=== PATIENT | male | born 1940 | race Caucasian/White ===

== ENCOUNTER 2017-01-02 16:24 | Inpatient (IN) ==
--- NOTE | 2017-01-02 16:52 | Emergency Department Report ---
Abdominal Pain HPI - General Chief Complaint: Abdominal Pain Stated Complaint: Abdominal pain Time Seen by Provider: 01/02/17 16:52 Source: patient Mode of arrival: ambulatory Limitations: no limitations - History of Present Illness HPI narrative: 76 YO M presents to ED with report of "not feeling well", feels tired and is having abdominal pain. Patient says that he woke up with abdominal pain that is medial from epigastric area to suprapubic area. Patient says it feels like an ache/cramp in his "belly". Ate breakfast today only. Took some Pepto-Bismol which he says he was unable to keep down. Has had a few small stools today that feels like he "cannot empty myself out". Patient reports forcing himself to to vomit to feel better "but nothing much came up". Patient denies fever, chills, cough, SOA, constipation, diarrhea or dysuria. No known sick contacts. MD complaint: abdominal pain Onset (ago): hour(s) Severity scale (1-10): 9 Quality: cramping, aching - Related Data Home Medications Medication Instructions Recorded Confirmed Amiodarone [Pacerone] 200 mg PO TID 01/02/17 01/02/17 Ascorbic Acid [Vitamin C] 1,000 mg PO WS 01/02/17 01/02/17 Cholecalciferol (Vitamin D3) 5,000 unit PO NOON 01/02/17 01/02/17 [Vitamin D3] Dabigatran [Pradaxa] 150 mg PO BID 01/02/17 01/02/17 Evolocumab [Repatha Sureclick] 140 mg SQ Q2WKS 01/02/17 01/02/17 Gemfibrozil [Lopid] 600 mg PO BIDBS 01/02/17 01/02/17 GlyBURIDE [Micronase] 2.5 mg PO HS 01/02/17 01/02/17 GlyBURIDE [Micronase] 5 mg PO QAM 01/02/17 01/02/17 Losartan [Cozaar] 50 mg PO DAILY 01/02/17 01/02/17 Metformin [Glucophage] 1,000 mg PO BID 01/02/17 01/02/17 Niacin 1,000 mg PO HS 01/02/17 01/02/17 Nitroglycerin [Nitrostat] 0.4 mg PO Q5MIN3 PRN 01/02/17 01/02/17 [place]-3/Dha/Epa/Fish Oil [Fish Oil 1 cap PO NOON 01/02/17 01/02/17 [place]-3 EC 1,200 mg] Phenytoin Cap [Dilantin] 100 mg PO WB 01/02/17 01/02/17 Phenytoin Cap [Dilantin] 200 mg PO HS 01/02/17 01/02/17 Terbinafine Tab [LamISIL] 250 mg PO DAILY 01/02/17 01/02/17 Allergies Allergy/AdvReac Type Severity Reaction Status Date / Time lisinopril Allergy Unknown Verified 01/02/17 17:03 Pvkkkmj-Ybp-Gfq Reductase Allergy Unknown Verified 01/02/17 17:03 Inhibitor Review of Systems All systems: reviewed and negative except as stated Gastrointestinal: Reports: as per HPI, abdominal pain, nausea, vomiting PFSH Diabetes Type II HTN CAD Atrial Fibrillation Hypercholesterolemia Surgical History: Hernia repair. Cardiac stents. Cardiac ablation Family History: Noncontributory - Social History Household members: spouse Current occupational status: retired Physical Exam - Limitations Limitations: no limitations - General General appearance: alert - Normal Exams: Head:: Normocephalic without trauma Eyes:: No scleral icterus, irritation ENMT:: No facial trauma, nasal exudates Neck:: Full range of motion, without adenopathy Chest/Respirations:: Clear all quach, with good airflow, and symmetry bilaterally Cardiovascular:: Regular rate and rhythm Musculoskeletal:: No tenderness, or deformity noted, all extremities Integumentary:: No rashes Neurological:: Patient is alert, and oriented Psychiatric:: Patient exhibits, appropriate attention, emotion and affect - Abdominal Exam Abdominal exam: Present: soft, distention, tenderness (diffuse mild TTP), diminished bowel sounds (x4). Absent: guarding, rebound - Skin Skin exam: Present: warm, dry Course - Consultations Consultation #1: I discussed patient's HPI, PMH, labs, abdomen/pelvis CT, exam findings and treatment in the ED with Dr. Goldman. Dr. Goldman will admit patient observation. Time: 19:52 Vital Signs Temperature 97.9 F 01/02/17 16:30 Pulse Rate 75 01/02/17 16:30 Respiratory Rate 20 01/02/17 16:30 Blood Pressure 170/80 H 01/02/17 16:30 Pulse Oximetry 93 01/02/17 16:30 Temperature 97.9 F 01/02/17 16:30 Pulse Rate 75 01/02/17 16:30 Respiratory Rate 20 01/02/17 16:30 Blood Pressure 170/80 H 01/02/17 16:30 Pulse Oximetry 93 01/02/17 16:30 Abdominal Pain - [facility] Narrative Medical decision making narrative: Patient has improvement of pain after Dilaudid with improvement of nausea with Zofran. WBC 8.6 with neut. 76.6 CMP indicates mild dehydration I discussed labs and CT results with patient and answered questions. Discussed with hospitalist patient will be admitted observation status. - Differential Diagnosis Differential diagnosis: Likely: abdominal pain, constipation, diverticulitis, small bowel obstruction - Lab Data Attestation: I reviewed the patient's lab results. Result diagrams: 01/02/17 17:31 01/02/17 17:31 - Radiology Data Attestation: I reviewed the patient's radiology results. CT abd/pelvis: Small bowel ileus Increased stool in the ascending colon Cholelithiasis Diffuse fatty liver infiltration Disposition Clinical Impression: Ileus Disposition: 02 To [place] [facility] [place] Condition: Improved - Seen By: midlevel
[2017-01-02] MEDS ORDERED: ONDANSETRON 4 MG/2 ML INJECTION IV ONE (17:07)
[2017-01-02] MEDS ORDERED: HYDROMORPHONE 2 MG/ML INJECTION IVP ONE (17:33)
[2017-01-02] MEDS ORDERED: NS 1,000 ML IV SCH (17:45)
[2017-01-02] MEDS ORDERED: SALINE FLUSH 10ml SYRINGE ONE (18:46)
[2017-01-02] MEDS ORDERED: NS 100 ML ONE (18:46)
[2017-01-02] MEDS ORDERED: IOHEXOL 300mg/ml 100ml INJECTION ONE (18:46)
[2017-01-02] MEDS ORDERED: ONDANSETRON 4 MG/2 ML INJECTION IVP PRN (20:53)
[2017-01-02] MEDS: NS 1,000 ML IV SCH (21:07)
[2017-01-02 21:08] VITALS: BMI 32.3
[2017-01-02] MEDS: HYDROMORPHONE 2 MG/ML INJECTION IVP PRN ×2 (21:42→23:42)
--- NOTE | 2017-01-02 21:51 | History & Physical Report ---
<Giulia Lua Laura - Last Filed: 01/02/17 22:09> History of Present Illness Date: 01/02/17 Chief complaint: abdominal pain HPI: 76 YO M with PMH of CAD, DM2, pacemaker and seizure disorder presented to ED with report of "not feeling well", feels tired and is having abdominal pain. Patient says that he woke up with abdominal pain that is medial from epigastric area to suprapubic area. Patient says it feels like an ache/cramp in his "belly ". Ate breakfast today only. Took some Pepto-Bismol which he says he was unable to keep down. Has had a few small stools today that feels like he "cannot empty myself out". Patient reports forcing himself to to vomit to feel better "but nothing much came up". Patient denies fever, chills, cough, SOA, constipation, diarrhea or dysuria. No known sick contacts. Patient denies previous abdominal surgeries or bowel blockages in the past. He reports after getting dilaudid in the ED his pain became a 6-7/10 constant pressure in his lower right abdomen. CT scan in the ED showed a ileus and constipation. Patient admitted for further supportive care and pain control. Review of Systems Comprehensive ROS: completed and no additional positive findings except those as stated PFSH Patient Stated Medical History Cataracts Yes Angina Yes Cardiac Arrhythmia Yes Hypertension Yes Myocardial Infarction Yes: 1991 Diabetes Mellitus Type 2 Yes Obstructive Bowel Yes Other GI Yes: Hernia Hx Kidney Stones Yes Hx Urinary Tract Infection Yes Other Yes: Swollen Prostate Osteoarthritis Yes Surgical History: Hernia repair. Cardiac stents. Cardiac ablation - Social History Smoking status: Former smoker Medications Home Medications Medication Instructions Recorded Confirmed Type Amiodarone [Pacerone] 200 mg PO TID 01/02/17 01/02/17 History Ascorbic Acid [Vitamin C] 1,000 mg PO WS 01/02/17 01/02/17 History Cholecalciferol (Vitamin D3) 5,000 unit PO NOON 01/02/17 01/02/17 History [Vitamin D3] Dabigatran [Pradaxa] 150 mg PO BID 01/02/17 01/02/17 History Evolocumab [Repatha Sureclick] 140 mg SQ Q2WKS 01/02/17 01/02/17 History Gemfibrozil [Lopid] 600 mg PO BIDBS 01/02/17 01/02/17 History GlyBURIDE [Micronase] 2.5 mg PO HS 01/02/17 01/02/17 History GlyBURIDE [Micronase] 5 mg PO QAM 01/02/17 01/02/17 History Losartan [Cozaar] 50 mg PO DAILY 01/02/17 01/02/17 History Metformin [Glucophage] 1,000 mg PO BID 01/02/17 01/02/17 History Niacin 1,000 mg PO HS 01/02/17 01/02/17 History Nitroglycerin [Nitrostat] 0.4 mg PO Q5MIN3 PRN 01/02/17 01/02/17 History [place]-3/Dha/Epa/Fish Oil [Fish Oil 1 cap PO NOON 01/02/17 01/02/17 History [place]-3 EC 1,200 mg] Phenytoin Cap [Dilantin] 100 mg PO WB 01/02/17 01/02/17 History Phenytoin Cap [Dilantin] 200 mg PO HS 01/02/17 01/02/17 History Terbinafine Tab [LamISIL] 250 mg PO DAILY 01/02/17 01/02/17 History Allergies Allergy/AdvReac Type Severity Reaction Status Date / Time lisinopril Allergy Unknown Verified 01/02/17 17:03 [id number]-Yci-Rts Reductase Allergy Unknown Verified 01/02/17 17:03 Inhibitor Exam Vital Signs: Temperature 97.6 F 01/02/17 20:52 Pulse Rate 75 01/02/17 20:52 Respiratory Rate 20 01/02/17 20:52 Blood Pressure 161/89 H 01/02/17 20:52 Pulse Oximetry 95 01/02/17 20:52 Oxygen Delivery Method Room Air Height/Weight/BMI: Height 1.7 m Weight 93.5 kg Body Mass Index 32.3 Results - Labs CBC & Chem 7: 01/02/17 17:31 01/02/17 17:31 Assessment and Plan (1) Ileus Current visit: Yes Status: Acute 01/02/17 21:57 likely cause of patients abdominal pain. Patient responding well to Dilaudid PRN. Make patient NPO give IVF with 1/2NS at 100cchr. Will continue phenytoin, but hold all other medications until patient is able to tolerate PO. Repeat labs and KUB in AM. Do not think patient needs NGT to decompression at this time. Monitor for changes. Consider Gen Surg consult in AM if patient's condition worsens. (2) Constipation Current visit: Yes Status: Acute DVT Prophylaxis: SCD's GI Prophylaxis: Protonix Resuscitation Status: Full Code Hospital Course Summary Disclaimer: The visit summary below is not to be considered part of the above Progress Note. <Sandhya Fry - Last Filed: 01/03/17 17:16> History of Present Illness Date: 01/03/17 Exam Vital Signs: Temperature 96.8 F 01/03/17 00:00 Pulse Rate 81 01/03/17 11:39 Respiratory Rate 22 01/03/17 11:39 Blood Pressure 128/69 01/03/17 11:39 Pulse Oximetry 90 01/03/17 11:39 Results - Labs CBC & Chem 7: 01/03/17 02:13 01/03/17 02:13 Assessment and Plan (1) Ileus Current visit: Yes Status: Acute (2) Constipation Current visit: Yes Status: Acute Assessment and Plan: Please see note 01/03/17 for my additional comments. Hospital Course Summary Disclaimer: The visit summary below is not to be considered part of the above Progress Note.
--- NOTE | 2017-01-02 22:05 | CT Scan Report ---
Indication: diffuse abdominal pain PROCEDURE: CT abdomen pelvis w con: Encounter: Initial Comparison: None Technique: Axial CT images were performed through the abdomen and pelvis after the administration of intravenous contrast. Coronal and sagittal two-dimensional reformats. Automated Exposure Control and Iterative Reconstruction dose reducing techniques were utilized. Contrast: Omnipaque 300 100 mL Findings: The lung bases are clear. The liver is unremarkable apart from fatty infiltration. Gallbladder is distended with multiple gallstones in the gallbladder neck. The spleen, pancreas and adrenal glands are normal. Kidneys show no acute findings. No abdominal or pelvic adenopathy. Scattered arterial vascular calcifications. Prostate is enlarged. No free fluid. Sigmoid and descending colonic diverticulosis without evidence of diverticulitis. There are some mildly dilated small bowel loops seen in the anterior abdomen measuring up to 3.7 cm in diameter with gradual transition to more normal caliber bowel. There is some wall thickening seen within the terminal ileum. Impression: Findings of a mild focal ileus or partial small bowel obstruction. There is a preliminary report by [facility]. .
[2017-01-02] MEDS: PANTOPRAZOLE 40 MG INJECTION IVP SCH (23:05)
[2017-01-02] MEDS: PHENYTOIN 100 MG CAPSULE PO SCH (23:05)
[2017-01-02] MEDS: 1/2 NS 1,000 ML IV SCH (23:08)
[2017-01-03] MEDS: HYDROMORPHONE 2 MG/ML INJECTION IVP PRN ×9 (01:45→20:16)
[2017-01-03] MEDS: PHENYTOIN 100 MG CAPSULE PO SCH ×2 (09:06→22:20)
[2017-01-03] MEDS: PANTOPRAZOLE 40 MG INJECTION IVP SCH (09:06)
--- NOTE | 2017-01-03 10:02 | XRay Report ---
EXAM: XR KUB w upright HISTORY: ileus COMPARISON: CT scan of the abdomen and pelvis performed 01/02/2017 FINDINGS: There is been interval worsening of the gaseous dilatation of the loop of small bowel seen in the upper abdomen now demonstrating maximum caliber of 5.6 cm (previously demonstrated a maximum caliber of 3.7 cm). This may represent a closed loop obstruction as there is otherwise relative paucity of gas within the remaining small bowel loops. There is also gas gaseous distention of the adjacent james ascending colon demonstrating a maximum caliber of 9.4. There is a moderate amount of gas and fecal material visualized in the james ascending colon. Multiple faceted calculi projected over the right upper quadrant which were found to be gallbladder in location on the 01/02/2017 CT scan of the abdomen and pelvis. There is no free air or free fluid. There are air-fluid levels on the upright view. There is no evidence of organomegaly. The psoas muscle margins are well visualized. The osseous structures are stable showing moderately advanced degenerative/senescent changes in the lumbar spine and bony pelvis. Limited imaging through the base of the lungs show cardiac There is contrast seen in the urinary bladder secondary to contrast recently administered intravenously for the CT scan of the abdomen and pelvis 01/02/2017. IMPRESSION: 1. Interval worsening of the ileus pattern is concerning for progression of the changes of small bowel obstruction which may be a closed loop obstruction. 2. No free air or free fluid. 3. Cholelithiasis. A preliminary report was called to the hospitalist regarding the above findings 01/03/2017 at 9:54 AM. .
[2017-01-03] MEDS: NS 1,000 ML IV SCH ×2 (11:13→22:19)
[2017-01-03] MEDS: 1/2 NS 1,000 ML IV SCH (11:14)
[2017-01-03] MEDS: SALINE FLUSH 10ml SYRINGE IVF PRN ×3 (11:18→16:28)
[2017-01-03] MEDS ORDERED: NITROGLYCERIN 0.4 MG SUBLINGUAL TABLET SL PRN (11:38)
--- NOTE | 2017-01-03 13:23 | General Surgery Consult Note ---
Consult date: 01/03/17 Attending Physician: Sandhya Fry MD Reason for consult: abdominal pain PFS Patient Stated Medical History Cataracts Angina Atrial fibrillation Hypertension Myocardial Infarction 1991 Diabetes Mellitus Type 2 Obstructive Bowel Hx Kidney Stones Hx Urinary Tract Infection BPH Osteoarthritis Surgical History: Inguinal Hernia repair. Pacemaker. Cardiac stents x 6 at different times since 1999. Cardiac ablation. Cardioversion x3. Colonoscopy x3, last one about 5-[address] Family History: brother - colon cancer dx in his late 40's, age 52 - Social History Smoking status: Former smoker Alcohol intake frequency: does not drink Household members: spouse ( 57 years) Current occupational status: retired Medications Home Medications Medication Instructions Recorded Confirmed Type Amiodarone [Pacerone] 200 mg PO TID 01/02/17 01/02/17 History Ascorbic Acid [Vitamin C] 1,000 mg PO WS 01/02/17 01/02/17 History Cholecalciferol (Vitamin D3) 5,000 unit PO NOON 01/02/17 01/02/17 History [Vitamin D3] Dabigatran [Pradaxa] 150 mg PO BID 01/02/17 01/02/17 History Evolocumab [Repatha Sureclick] 140 mg SQ Q2WKS 01/02/17 01/02/17 History Gemfibrozil [Lopid] 600 mg PO BIDBS 01/02/17 01/02/17 History GlyBURIDE [Micronase] 2.5 mg PO HS 01/02/17 01/02/17 History GlyBURIDE [Micronase] 5 mg PO QAM 01/02/17 01/02/17 History Losartan [Cozaar] 50 mg PO DAILY 01/02/17 01/02/17 History Metformin [Glucophage] 1,000 mg PO BID 01/02/17 01/02/17 History Niacin 1,000 mg PO HS 01/02/17 01/02/17 History Nitroglycerin [Nitrostat] 0.4 mg PO Q5MIN3 PRN 01/02/17 01/02/17 History [place]-3/Dha/Epa/Fish Oil [Fish Oil 1 cap PO NOON 01/02/17 01/02/17 History [place]-3 EC 1,200 mg] Phenytoin Cap [Dilantin] 100 mg PO WB 01/02/17 01/02/17 History Phenytoin Cap [Dilantin] 200 mg PO HS 01/02/17 01/02/17 History Terbinafine Tab [LamISIL] 250 mg PO DAILY 01/02/17 01/02/17 History Allergies Allergy/AdvReac Type Severity Reaction Status Date / Time lisinopril Allergy Unknown Verified 01/02/17 17:03 Ukabbgn-Rvg-Ctk Reductase Allergy Unknown Verified 01/02/17 17:03 Inhibitor Review of Systems 10-point ROS: negative except for HPI and the following: - Cardiovascular Cardiovascular: Present: chest pain (angina), other (history of Mi and cardiac stents) - Gastrointestinal Gastrointestinal: Present: other (see HPI) - Musculoskeletal Musculoskeletal: Present: joint pain (occasional) - Neurological Neurological: Present: seizures - Endocrine Endocrine: Present: diabetes - Hematologic/Lymphatic Hematologic/Lymphatic: Present: easy bruising, use of blood thinners - Vital Signs Last Vital Signs Temp 96.8 F 01/03/17 00:00 Pulse 81 01/03/17 11:39 Resp 22 01/03/17 11:39 BP 128/69 01/03/17 11:39 Pulse Ox 90 01/03/17 11:39 - Laboratory Result Diagrams: 01/03/17 02:13 01/03/17 02:13 General Surgery Results - Results Labs: 01/03/17 02:13 01/03/17 02:13 Hospital Course Summary Disclaimer: The visit summary below is not to be considered part of the above Progress Note. Sepsis Assessment - Evaluation Sepsis screening result: No Definite Risk
[2017-01-03] MEDS ORDERED: DIATRIZOATE MEGLUMINE/SOD. (66%/10%) 120ml SOLN ONE (15:00)
--- NOTE | 2017-01-03 15:36 | Ultrasound Report ---
EXAM: US gall bladder HISTORY: ruq abdominal pain COMPARISON: No prior studies available for comparison. FINDINGS: The liver is borderline enlarged showing diffuse increased echogenicity consistent with fatty infiltration. The gallbladder is mildly dilated consistent with gallbladder hydrops. There are stones in the gallbladder neck. The wall of the gallbladder is upper limits of normal thickness. The patient did not express tenderness while scanning over the gallbladder. There is no intra or extra hepatic biliary dilatation, the common bile duct measured 6 mm. The pancreas was not well seen and therefore could not be assess. The right kidney measured 10.6 cm, demonstrating no evidence of mass effect, hydronephrosis or perinephric fluid collection. Ascites is not seen. IMPRESSION: 1. Gallbladder hydrops with calculi seen in the gallbladder neck. The wall of the gallbladder is upper limits of normal. Early cholecystitis is not excluded. 2. Borderline enlarged fatty liver. 3. Pancreas was not well seen and therefore cannot be assessed. 4. There is no intra or extra hepatic biliary dilatation. .
[2017-01-03] MEDS: ERTAPENEM 1 G in NS 100 ML IV SCH (16:27)
--- NOTE | 2017-01-03 17:21 | History & Physical Report ---
History of Present Illness Date: 01/03/17 Chief complaint: abdominal pain HPI: 76 YO M with PMH of CAD, DM2, pacemaker and seizure disorder presented to ED early evening with report of "not feeling well" on awakening in the morning. He describes fatigue for 2 days and generalized having abdominal pain 1 day. Patient says that he woke up with abdominal pain that is medial from epigastric area to suprapubic area. Patient says it feels like an ache/cramp in his "belly ". Ate breakfast yesterday without nausea but was unable to eat later in the day due to increasing nausea through the day. Tried cold packs on his abdomen without relief; tried prune juice without relief. Took some Pepto-Bismol which he says he was unable to keep down. Has had a 2 small stools early yesterday but feels like he "cannot empty myself out". Since that time he's had no further stools or flatus. Patient tried forcing himself to to vomit to feel better "but nothing much came up". Patient denies fever, chills, cough, SOA, constipation, diarrhea or dysuria. Patient denies previous abdominal surgeries except remote right inguinal hernia repair; no past bowel blockages. Pain control required dilaudid in the ED his pain became a 6-7/10 constant pressure in his lower right abdomen. He has superimposed spasms of pain. CT scan in the ED showed a ileus and constipation. Patient admitted for further supportive care and pain control. 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 Pacemaker. Cardiac stents x 6 at different times since 1999. Cardiac ablation. Cardioversion x3. Colonoscopy x3, last one about 5-6 years ago at [facility] Family History: Mother- of blood clots to her heart Father- of coronary artery disease Brother-had coronary artery disease but of colon cancer One sister of complications of diabetes mellitus and a second sister has diabetes mellitus - Social History Smoking status: Former smoker Substance use type: does not use Alcohol intake frequency: does not drink Social history: PCP-[facility] [employer]-Dr. Peters Full code Medications Home Medications Medication Instructions Recorded Confirmed Type Amiodarone [Pacerone] 200 mg PO TID 01/02/17 01/02/17 History Ascorbic Acid [Vitamin C] 1,000 mg PO WS 01/02/17 01/02/17 History Cholecalciferol (Vitamin D3) 5,000 unit PO NOON 01/02/17 01/02/17 History [Vitamin D3] Dabigatran [Pradaxa] 150 mg PO BID 01/02/17 01/02/17 History Evolocumab [Repatha Sureclick] 140 mg SQ Q2WKS 01/02/17 01/02/17 History Gemfibrozil [Lopid] 600 mg PO BIDBS 01/02/17 01/02/17 History GlyBURIDE [Micronase] 2.5 mg PO HS 01/02/17 01/02/17 History GlyBURIDE [Micronase] 5 mg PO QAM 01/02/17 01/02/17 History Losartan [Cozaar] 50 mg PO DAILY 01/02/17 01/02/17 History Metformin [Glucophage] 1,000 mg PO BID 01/02/17 01/02/17 History Niacin 1,000 mg PO HS 01/02/17 01/02/17 History Nitroglycerin [Nitrostat] 0.4 mg PO Q5MIN3 PRN 01/02/17 01/02/17 History Vinton-3/Dha/Epa/Fish Oil [Fish Oil 1 cap PO NOON 01/02/17 01/02/17 History Vinton-3 EC 1,200 mg] Phenytoin Cap [Dilantin] 100 mg PO WB 01/02/17 01/02/17 History Phenytoin Cap [Dilantin] 200 mg PO HS 01/02/17 01/02/17 History Terbinafine Tab [LamISIL] 250 mg PO DAILY 01/02/17 01/02/17 History Allergies Allergy/AdvReac Type Severity Reaction Status Date / Time lisinopril Allergy Unknown Verified 01/02/17 17:03 Jvzaaop-Shw-Ycj Reductase Allergy Unknown Verified 01/02/17 17:03 Inhibitor Exam Vital Signs: Temperature 96.8 F 01/03/17 00:00 Pulse Rate 81 01/03/17 11:39 Respiratory Rate 22 01/03/17 11:39 Blood Pressure 128/69 01/03/17 11:39 Pulse Oximetry 90 01/03/17 11:39 EXAM: General-NAD, alert, cooperative HEENT-PERRL, EOMI without nystagmus, conjugate gaze, conjunctiva clear, sclera anicteric facial structures symmetric, oropharynx clear, neck supple and without adenopathy Lungs-respirations nonlabored, good airflow, rest sounds diminished at the bases Cardiac-regular rhythm, S1-S2 Abd-distended, soft, tender to palpation in the RUQ> RLQ, some guarding RUQ but no peritoneal signs, minimal bowel sounds Ext-without edema Skin-without rash or wounds Neuro-cranial nerves 3-12 intact, motor tone normal, sensation intact to light touch 4 extremities, proximal/distal power grossly normal Psych-calm, euthymic Results - Labs CBC & Chem 7: 01/03/17 02:13 01/03/17 02:13 Labs: Segs 86, bands 3, lymphocytes 7, monocytes 4 Liver enzymes unremarkable Lactic acid 1.7-1.6 Urinalysis unremarkable - Imaging and Cardiology CT scan - abdomen Status: image reviewed by me (gallbladder is enlarged but without gallbladder wall thickening, all stones are present at the neck of the gallbladder; third dilated loops of small bowel and increased stool content.) Abdominal x-ray Status: image reviewed by me (KUB this morning demonstrated increasing dilation of the loop of small bowel in the right upper quadrant and increasing gaseous distention in the ascending colon. Radiology notified me of worsening ileus or progression to small bowel obstruction.) Assessment and Plan (1) Ileus Current visit: Yes Status: Acute (2) Constipation Current visit: Yes Status: Acute DVT Prophylaxis: SCD's GI Prophylaxis: Protonix Resuscitation Status: Full Code Assessment and Plan: Assessment: Abdominal pain Ileus/early SBO Constipation Cholelithiasis Coronary artery disease Paroxysmal atrial fibrillation Diabetes mellitus, no known complications, oral medications-A1c 6.48/ Hypertension DJD with sciatica Plan: Continue IV fluids. Presentation/symptoms reviewed with Dr. Allred in conjunction with worsening radiographic findings. Dr. Allred seen the patient in consultation and additional imaging of gallbladder and Gastrografin upper GI planned. Supportive care with IV fluids, antiemetics, and pain medications. At present I don't believe an NG tube is needed. Monitor Accu-Cheks, corrective scale insulin is available if needed. Pradaxa on hold. Oral diabetes agents on hold. Continue amiodarone and phenytoin with sips of water. Sepsis Assessment - Evaluation Sepsis screening result: No Definite Risk Hospital Course Summary Disclaimer: The visit summary below is not to be considered part of the above Progress Note. Hospital Course: 01/03/17 17:37 Admitted overnight with abdominal pain and CT findings suggestive of ileus versus partial small bowel obstruction. Worsening radiographic findings this morning. Continue IV fluids. Presentation/symptoms reviewed with Dr. Allred in conjunction with worsening radiographic findings. Dr. Allred seen the patient in consultation and additional imaging of gallbladder and Gastrografin upper GI planned. Supportive care with IV fluids, antiemetics, and pain medications. At present I don't believe an NG tube is needed. Monitor Accu-Cheks, corrective scale insulin is available if needed. Pradaxa on hold. Oral diabetes agents on hold. Continue amiodarone and phenytoin with sips of water.
[2017-01-03] MEDS: AMIODARONE 200 MG TABLET PO SCH (22:23)
--- NOTE | 2017-01-04 08:01 | General Surgery Progress Note ---
Subjective Patient reports: feels better (abd pain is much improved, and states "my muscles are just sore now." ), pain is less (minimal tenderness RUQ, and nontender in the rest of the abd (although he is sitting, not supine).), bowel movement (several large liquid stools since the SBFT with gastrografin.), afebrile Narrative: Martini's negative during GB sono - Vital Signs Last Vital Signs Temp 96.6 F L 01/04/17 07:00 Pulse 80 01/04/17 07:00 Resp 16 01/04/17 07:00 BP 139/71 01/04/17 07:00 Pulse Ox 92 01/04/17 07:00 - Laboratory Result Diagrams: 01/04/17 04:24 01/04/17 04:24 Laboratory Tests 01/02/17 01/04/17 17:31 04:24 Total Bilirubin 0.60 0.60 AST 22 21 ALT 35 32 Alkaline Phosphatase 117 81 D Lipase 153 - Radiology 01/03 KUB IMPRESSION: 1. Interval worsening of the ileus pattern is concerning for progression of the changes of small bowel obstruction which may be a closed loop obstruction. 2. No free air or free fluid. 3. Cholelithiasis. 01/03 GB sono IMPRESSION: 1. Gallbladder hydrops with calculi seen in the gallbladder neck. The wall of the gallbladder is upper limits of normal. Early cholecystitis is not excluded. 2. Borderline enlarged fatty liver. 3. Pancreas was not well seen and therefore cannot be assessed. 4. There is no intra or extra hepatic biliary dilatation. 01/03 SBFT - Abnormal Exam Abdominal: tender (mildly tender RUQ) - Normal Exam General: no acute distress Cardiovascular: regular rhythm, regular rate Respiratory: clear bilaterally, no labored breathing Abdominal: BS normo active x4 (several liquid stools since gastrografin), soft Neurological: CN 2-12 grossly intact Assessment and Plan (1) Cholelithiasis without obstruction Current Visit: Yes Status: Acute Qualifiers: Cholelithiasis location: gallbladder Cholecystitis presence: without cholecystitis Qualified Code(s): K80.20 - Calculus of gallbladder without cholecystitis without obstruction (2) Ileus Current Visit: Yes Status: Resolved Plan: Multiple stools after gastrografin, ruling out SBO RUQ pain essentially gone this morning and Martini neg during GB sono will advance diet as tolerated. Hospital Course Summary Disclaimer: The visit summary below is not to be considered part of the above Progress Note. Hospital Course: 01/03/17 17:37 Admitted overnight with abdominal pain and CT findings suggestive of ileus versus partial small bowel obstruction. Worsening radiographic findings this morning. Continue IV fluids. Presentation/symptoms reviewed with Dr. Allred in conjunction with worsening radiographic findings. Dr. Allred seen the patient in consultation and additional imaging of gallbladder and Gastrografin upper GI planned. Supportive care with IV fluids, antiemetics, and pain medications. At present I don't believe an NG tube is needed. Monitor Accu-Cheks, corrective scale insulin is available if needed. Pradaxa on hold. Oral diabetes agents on hold. Continue amiodarone and phenytoin with sips of water. Sepsis Assessment - Evaluation Sepsis screening result: No Definite Risk
[2017-01-04] MEDS: ERTAPENEM 1 G in NS 100 ML IV SCH (08:14)
[2017-01-04] MEDS: PANTOPRAZOLE 40 MG INJECTION IVP SCH (08:14)
[2017-01-04] MEDS: AMIODARONE 200 MG TABLET PO SCH ×3 (08:15→20:26)
[2017-01-04] MEDS: PHENYTOIN 100 MG CAPSULE PO SCH ×2 (08:15→20:26)
[2017-01-04] MEDS: SALINE FLUSH 10ml SYRINGE IVF PRN (08:15)
[2017-01-04] MEDS: NS 1,000 ML IV SCH ×3 (08:17→23:48)
--- NOTE | 2017-01-04 08:34 | XRay Report ---
Indication: ileus vs small bowel obstruction PROCEDURE: XR small bowel follow through: Encounter: Initial Comparison: CT abdomen/pelvis dated January 02, 2017 Findings: Water-soluble contrast was administered orally followed by serial abdominal radiographs. Contrast traverses the small bowel slowly show mildly dilated small bowel loops. Contrast reaches the cecum and right colon by 2 h and 45 minutes after administration. Impression: Normal intestinal transit time less than three hours. Mild small bowel dilatation could represent a mild partial obstruction or ileus. .
--- NOTE | 2017-01-04 08:36 | Consultation ---
DATE OF CONSULTATION 01/03/2017 FINDINGS Mr. Mendiola is a 76-year-old gentleman I was asked to see today as a result of his history for history and physical findings of abdominal pain in conjunction with radiographic evidence suggestive of possible bowel obstruction. Upon questioning Mr. Mendiola, he states that he has been "A-Fib" over the last several months. He states that he has been feeling "more tired than usual." The patient states that on Tuesday he had awakened and was going to go to [employer] School, but did not feel well. The patient states that he then "lay on the couch." The patient states that by lunch he "felt miserable." He states that he was nauseated and had abdominal pain throughout his abdomen. The patient states, "I tried to make myself throw up," thinking that that this may make him feel better. He states he did take some prune juice and Pepto-Bismol prior to "making myself throw up." The patient states that he has had a few small bowel movement since Tuesday. He states, however, he feels as if he is not "emptying out." The patient denies a prior history for this type of abdominal pain in the past. The patient states that he has had "kidney stones in the past and that was significantly worse." Upon my entering the room he was requesting intravenous narcotics as a result of his abdominal pain. When questioned where his pain is located, he pointed mostly to his right midabdominal region. The patient has not had any further vomiting since admission. PAST MEDICAL HISTORY Performed by my nurse practitioner, Jimbo Castillo. PAST SURGICAL HISTORY Performed by my nurse practitioner, Jimbo Castillo. MEDICATIONS Performed by my nurse practitionerJimbo. ALLERGIES Performed by my nurse practitionerJimbo. SOCIAL HISTORY Performed by my nurse practitionerJimbo. FAMILY HISTORY Performed by my nurse practitionerJimbo. REVIEW OF SYSTEMS Performed by my nurse practitionerJimbo. PHYSICAL EXAMINATION Mr. Mendiola is a 76-year-old gentleman who did not appear to be in acute distress. VITALS: Temperature 96.8, pulse 81, respirations 22, blood pressure 128/69, SaO2 90% on room air. HEENT: Normocephalic. Pupils are equal, round and reactive to light and accommodation. NECK: Supple without lymphadenopathy. CHEST: Clear to auscultation bilaterally. HEART: Regular rate and rhythm. Normal S1 and S2 without gallops, murmurs or clicks. ABDOMEN: Palpation of the abdomen actually revealed localized tenderness to his right upper quadrant. The patient did have a positive Martini sign, i.e. the pain was made worse with inspiration in conjunction with palpation within the right upper quadrant. The patient did have some minimal tenderness within the right lower quadrant and right midabdomen, but again, the point tenderness appeared to be within the right upper quadrant in a subcostal location. Left side of the abdomen was soft and completely nontender. The patient did have a slight component of some voluntary guarding but was without evidence for involuntary guarding or rebound tenderness. I did not appreciate any evidence for hepatomegaly or other abnormal masses. EXTREMITIES: Without clubbing, cyanosis, or edema. NEURO: Cranial nerves II-XII grossly intact. Patient is without focal motor or sensory deficits. LABORATORY/RADIOGRAPH EVALUATION The patient had a CBC yesterday upon admission and his white count was 8.6. Today his white count is slightly more elevated at 13.5. He does have a slight left shift with 86% neutrophils. CMP was obtained yesterday upon admission and his AST, ALT, alk phos, total bilirubin were all within normal limits. Calcium was minimally elevated at 10.3. Calcium has now returned to normal at 9.4 today. Radiographically he has had a CT scan of his abdomen and pelvis as well as plain films. On CT scan one can see a considerable amount of stool located within the cecal region. It does appear that the terminal ileum is somewhat dilated as well. One can see air within the rectum as well as the colon beyond this large cecal fecalization region. CT scan report was that of findings of a "mild focal ileus" or "partial small bowel obstruction." One could also see several stones within the neck of the gallbladder region upon CT scan. Upon plain films one can also see several stones within the anatomic location of the gallbladder. KUB and upright was obtained today. The patient does have a fair amount of distention of the cecal region in conjunction with a considerable amount of stool within the right lower quadrant which was seen previously upon CT scan. One can see some air within the transverse colon as well. It does appear that he has some dilated loops of small bowel within the pelvic region. I do not see any air-fluid levels. ASSESSMENT A 76-year-old gentleman with localized severe right upper quadrant abdominal pain, finding of cholelithiasis upon CT scan, finding of possible ileus versus partial small bowel obstruction upon radiograph evaluation. Patient without acute surgical abdomen. PLAN From a physical examination standpoint, he is exquisitely tender within his right upper quadrant which is concerning for a gallbladder etiology. We will go ahead and obtain a gallbladder sonogram to see if there is any evidence for gallbladder wall thickening or pericholecystic fluid. CT scan did reveal the gallbladder to be somewhat distended, but I did not see any evidence for pericholecystic stranding or edema to suggest acute cholecystitis. We will await his gallbladder ultrasound results and proceed accordingly. Additionally , given the question of a small bowel obstruction in conjunction with the considerable amount of stool noted within the cecal region, we will also go ahead obtain a Gastrografin small bowel follow-through this evening. Again, we will await these results and proceed accordingly. [facility]
[2017-01-04] MEDS: INSULIN ASPART 100unit/ml INJECTION SQ PRN (12:29)
--- NOTE | 2017-01-04 13:48 | Progress Note ---
DATE 01/04/2017 FINDINGS Mr. Mendiola states that this morning he is feeling significantly better. He states he did have several bowel movements throughout the evening. He states that his pain this morning is essentially "gone." He states that his "muscles are a little sore from straining." VITALS: Afebrile. Normotensive. Current vitals include temperature 96.6, pulse 80, respirations 16, blood pressure 139/71, SaO2 92% on room air. HEENT: Normocephalic. Pupils are equal, round and reactive to light and accommodation. CHEST: Clear to auscultation bilaterally. HEART: Regular rate and rhythm. Normal S1 and S2 without gallops, murmurs or clicks. ABDOMEN: Palpation of the abdomen this morning reveals it to be soft and essentially nontender. He did not have any element of guarding or rebound. No evidence of hepatomegaly or other abnormal masses. LABORATORY/RADIOGRAPH EVALUATION The patient had a CBC today and his white count is down at 12.6. Hemoglobin stable at 13.1. BMP obtained and overall is within normal limits with the exception that his sodium is minimally elevated at 145. Glucose is slightly elevated at 161. I did review the gallbladder ultrasound yesterday that revealed gallstones seen within the neck of his gallbladder. The wall of the gallbladder was within the upper limits. "Early cholecystitis could not be excluded." His liver function test remained within normal limits. Small bowel follow-through results are still pending. I did review the films. One can see contrast within his right colon at 2 hours and 45 minutes. ASSESSMENT 76-year-old gentleman with a presentation of abdominal pain, abnormal CT scan, right upper quadrant abdominal pain. Pain at this time has seemed to resolve. PLAN At this time the patient seems to be doing quite well from a clinical standpoint. His abdominal pain has completely resolved. Will advance his diet as tolerated. Will continue to follow with serial abdominal examinations. I question whether or not he perhaps did have a "gallbladder attack" resulting in a component of ileus. For now we will follow from a clinical standpoint and if the patient would have evidence for recurrence of symptomatic cholelithiasis, then at that point time would proceed with surgical intervention. Will be conservative at this point in time and, again, follow the patient from a clinical standpoint. [facility]
--- NOTE | 2017-01-04 14:30 | Progress Note ---
Subjective: Mr. Mendiola reports he feels significantly improved today. He has minor discomfort in the right upper quadrant but nothing like the discomfort he experienced yesterday and the prior day. He denies nausea or vomiting and tolerated liquids for breakfast. He had multiple stools after Gastrografin upper GI yesterday. He denied dyspnea or chest pain has had no lightheadedness. Objective Vital signs: Temperature 96.6 F L 01/04/17 07:00 Pulse Rate 80 01/04/17 07:00 Respiratory Rate 16 01/04/17 07:00 Blood Pressure 139/71 01/04/17 07:00 Pulse Oximetry 92 01/04/17 07:00 I/O 2100/not recorded weight relatively stable EXAM General-NAD, alert Lungs-respirations nonlabored, good airflow, breath sounds clear, on room air Cardiac-regular rhythm, S1-S2 Abd-soft, minimal discomfort on deep palpation of the right upper quadrant, no guarding, no peritoneal signs, bowel sounds present although diminished Ext-without edema Neuro-moving all extremities well Psych-calm, cooperative, euthymic - Height/Weight/BMI: Weight 91 kg Results - Labs CBC & Chem 7: 01/04/17 04:24 01/04/17 04:24 Labs: Liver enzymes normal - ECG Data Tracing #1 I reviewed this ECG and interpreted as documented below: (telemetry reviewed by myself-paced rhythm) - Imaging and Cardiology US - abdomen Status: image reviewed by me (gallbladder sonogram with hydrops/gallstones at the gallbladder neck, no wall thickening.) Abdominal x-ray Status: image reviewed by me (Gastrografin upper GI/SBFT with normal transit time and mild small bowel dilatation) Assessment and Plan (1) Ileus Current visit: Yes Status: Resolved (2) Constipation Current visit: Yes Status: Acute (3) Cholelithiasis without obstruction Current visit: Yes Status: Chronic DVT Prophylaxis: SCD's, Pradaxa GI Prophylaxis: Protonix Resuscitation Status: Full Code Assessment and Plan: Assessment: Abdominal pain Ileus/early SBO Constipation Cholelithiasis Coronary artery disease Paroxysmal atrial fibrillation Diabetes mellitus, no known complications, oral medications-A1c 6.48//17 Hypertension DJD with sciatica Plan: Pain much improved today after multiple bowel movements yesterday and overnight. Gallstones incidentally identified but do not appear to be acutely symptomatic or require acute intervention. Tolerated clear liquids at breakfast , advance diet as tolerated-anticipate cardiac diet at supper tonight and if tolerates well we'll discharge home this evening. Resume Pradaxa, Cozaar, metformin, and Micronase in conjunction with advancing diet. Discontinue IV PPI, antibiotics, decrease rate of IV fluids. Discussed with Dr. Allred, x-rays reviewed by myself, laboratory data reviewed; plans discussed with the patient's son. Reevaluate later today to assess ability to discharge home tonight. Sepsis Assessment - Evaluation Sepsis screening result: No Definite Risk Hospital Course Summary Disclaimer: The visit summary below is not to be considered part of the above Progress Note. Hospital Course: 01/03/17 17:37 Admitted overnight with abdominal pain and CT findings suggestive of ileus versus partial small bowel obstruction. Worsening radiographic findings this morning. Continue IV fluids. Presentation/symptoms reviewed with Dr. Allred in conjunction with worsening radiographic findings. Dr. Allred seen the patient in consultation and additional imaging of gallbladder and Gastrografin upper GI planned. Supportive care with IV fluids, antiemetics, and pain medications. At present I don't believe an NG tube is needed. Monitor Accu-Cheks, corrective scale insulin is available if needed. Pradaxa on hold. Oral diabetes agents on hold. Continue amiodarone and phenytoin with sips of water. 01/03/17 17:37 Admitted overnight with abdominal pain and CT findings suggestive of ileus versus partial small bowel obstruction. Worsening radiographic findings this morning. Continue IV fluids. Presentation/symptoms reviewed with Dr. Allred in conjunction with worsening radiographic findings. Dr. Allred seen the patient in consultation and additional imaging of gallbladder and Gastrografin upper GI planned. Supportive care with IV fluids, antiemetics, and pain medications. At present I don't believe an NG tube is needed. Monitor Accu-Cheks, corrective scale insulin is available if needed. Pradaxa on hold. Oral diabetes agents on hold. Continue amiodarone and phenytoin with sips of water. 01/04/17 14:40 Pain much improved today after multiple bowel movements yesterday and overnight. Gallstones incidentally identified but do not appear to be acutely symptomatic or require acute intervention. Tolerated clear liquids at breakfast , advance diet as tolerated-anticipate cardiac diet at supper tonight and if tolerates well we'll discharge home this evening. Resume Pradaxa, Cozaar, metformin, and Micronase in conjunction with advancing diet.
[2017-01-04] MEDS: LOSARTAN 50 MG TABLET PO SCH (14:37)
[2017-01-04] MEDS: GEMFIBROZIL 600 MG TABLET PO SCH (16:58)
[2017-01-04] MEDS: METFORMIN 1,000 MG TABLET PO SCH (20:27)
[2017-01-04] MEDS ORDERED: GLYBURIDE 2.5 MG TABLET PO SCH (21:00)
[2017-01-04 23:46] VITALS: RESP 16
[2017-01-05 07:57] VITALS: BP 126/75; PULSE 76; TEMP 96.2; O2SAT 94
[2017-01-05] MEDS: LOSARTAN 50 MG TABLET PO SCH (08:08)
[2017-01-05] MEDS: PHENYTOIN 100 MG CAPSULE PO SCH (08:08)
[2017-01-05] MEDS: GEMFIBROZIL 600 MG TABLET PO SCH (08:08)
[2017-01-05] MEDS: AMIODARONE 200 MG TABLET PO SCH (08:09)
[2017-01-05] MEDS: METFORMIN 1,000 MG TABLET PO SCH (08:09)
[2017-01-05] MEDS ORDERED: GLYBURIDE 2.5 MG TABLET PO SCH (09:00)
[2017-01-05] MEDS: INSULIN ASPART 100unit/ml INJECTION SQ PRN (11:38)
--- NOTE | 2017-01-05 11:38 | Discharge Instructions ---
Discharge Plan - Med Rec/Dispo [facility] Instructions: Ileus (GEN) Additional Instructions: follow up with Hadley Awan at [facility] in one week Prescriptions: New Polyethylene Glycol 3350 [Miralax] 17 gm PO DAILY PRN #1 bottle PRN Reason: Constipation Continue [place]-3/Dha/Epa/Fish Oil [Fish Oil [place]-3 EC 1,200 mg] 1 cap PO NOON Niacin 1,000 mg PO HS Terbinafine Tab [LamISIL] 250 mg PO DAILY Phenytoin Cap [Dilantin] 200 mg PO HS Nitroglycerin [Nitrostat] 0.4 mg PO Q5MIN3 PRN PRN Reason: Chest Pain Evolocumab [Repatha Sureclick] 140 mg SQ Q2WKS Amiodarone [Pacerone] 200 mg PO TID GlyBURIDE [Micronase] 2.5 mg PO HS Dabigatran [Pradaxa] 150 mg PO BID Metformin [Glucophage] 1,000 mg PO BID GlyBURIDE [Micronase] 5 mg PO QAM Ascorbic Acid [Vitamin C] 1,000 mg PO WS Cholecalciferol (Vitamin D3) [Vitamin D3] 5,000 unit PO NOON Phenytoin Cap [Dilantin] 100 mg PO WB Losartan [Cozaar] 50 mg PO DAILY Gemfibrozil [Lopid] 600 mg PO BIDBS Discharge Instructions/Outpatient Orders: Final Provider Discharge Instructions Location: Determined By Patient - Disposition 01 Discharged Home, Self-Care
--- NOTE | 2017-01-05 11:49 | Discharge Summary ---
Discharge Information Date of admission: 01/03/17 14:10 Attending Physician: Sandhya Fry MD Consults: Dr. Dada Allred, general surgery - Discharge Diagnosis Discharge Diagnosis: Right upper quadrant abdominal pain which then generalized Ileus-resolved cholelithiasis without obvious acute cholecystitis constipation - Laboratory Labs: 01/04/17 04:24 01/04/17 04:24 - Radiology Radiology: CT abdomen 01/02/2017 Findings: The lung bases are clear. The liver is unremarkable apart from fatty infiltration. Gallbladder is distended with multiple gallstones in the gallbladder neck. The spleen, pancreas and adrenal glands are normal. Kidneys show no acute findings. No abdominal or pelvic adenopathy. Scattered arterial vascular calcifications. Prostate is enlarged. No free fluid. Sigmoid and descending colonic diverticulosis without evidence of diverticulitis. There are some mildly dilated small bowel loops seen in the anterior abdomen measuring up to 3.7 cm in diameter with gradual transition to more normal caliber bowel. There is some wall thickening seen within the terminal ileum. Impression: Findings of a mild focal ileus or partial small bowel obstruction. Abdominal ultrasound 01/03/2017 IMPRESSION: 1. Gallbladder hydrops with calculi seen in the gallbladder neck. The wall of the gallbladder is upper limits of normal. Early cholecystitis is not excluded. 2. Borderline enlarged fatty liver. 3. Pancreas was not well seen and therefore cannot be assessed. 4. There is no intra or extra hepatic biliary dilatation. KUB 01/03/2017 IMPRESSION: 1. Interval worsening of the ileus pattern is concerning for progression of the changes of small bowel obstruction which may be a closed loop obstruction. 2. No free air or free fluid. 3. Cholelithiasis. Upper GI with small bowel follow-through 01/03/2017 following KUB Findings: Water-soluble contrast was administered orally followed by serial abdominal radiographs. Contrast traverses the small bowel slowly show mildly dilated small bowel loops. Contrast reaches the cecum and right colon by 2 h and 45 minutes after administration. Impression: Normal intestinal transit time less than three hours. Mild small bowel dilatation could represent a mild partial obstruction or ileus. History of Present Illness HPI: 76 YO M with PMH of CAD, DM2, pacemaker and seizure disorder presented to ED early evening with report of "not feeling well" on awakening in the morning. He describes fatigue for 2 days and generalized having abdominal pain 1 day. Patient says that he woke up with abdominal pain that is medial from epigastric area to suprapubic area. Patient says it feels like an ache/cramp in his "belly ". Ate breakfast yesterday without nausea but was unable to eat later in the day due to increasing nausea through the day. Tried cold packs on his abdomen without relief; tried prune juice without relief. Took some Pepto-Bismol which he says he was unable to keep down. Has had a 2 small stools early yesterday but feels like he "cannot empty myself out". Since that time he's had no further stools or flatus. Patient tried forcing himself to to vomit to feel better "but nothing much came up". Patient denies fever, chills, cough, SOA, constipation, diarrhea or dysuria. Patient denies previous abdominal surgeries except remote right inguinal hernia repair; no past bowel blockages. Pain control required dilaudid in the ED his pain became a 6-7/10 constant pressure in his lower right abdomen. He has superimposed spasms of pain. CT scan in the ED showed a ileus and constipation. Patient admitted for further supportive care and pain control. Objective Vital signs: Temperature 96.2 F L 01/05/17 07:00 Pulse Rate 76 01/05/17 07:00 Respiratory Rate 16 01/05/17 07:00 Blood Pressure 126/75 01/05/17 07:00 Pulse Oximetry 94 01/05/17 07:00 Height/Weight/BMI: Weight 91.3 kg Hospital Course This is a general summary of the patient's hospital course. For more details refer to the complete medical record. Hospital course: 01/03/17 17:37 Admitted overnight with abdominal pain and CT findings suggestive of ileus versus partial small bowel obstruction. Worsening radiographic findings this morning. Continue IV fluids. Presentation/symptoms reviewed with Dr. Allred in conjunction with worsening radiographic findings. Dr. Allred seen the patient in consultation and additional imaging of gallbladder and Gastrografin upper GI planned. Supportive care with IV fluids, antiemetics, and pain medications. At present I don't believe an NG tube is needed. Monitor Accu-Cheks, corrective scale insulin is available if needed. Pradaxa on hold. Oral diabetes agents on hold. Continue amiodarone and phenytoin with sips of water. 01/03/17 17:37 Admitted overnight with abdominal pain and CT findings suggestive of ileus versus partial small bowel obstruction. Worsening radiographic findings this morning. Continue IV fluids. Presentation/symptoms reviewed with Dr. Allred in conjunction with worsening radiographic findings. Dr. Allred seen the patient in consultation and additional imaging of gallbladder and Gastrografin upper GI planned. Supportive care with IV fluids, antiemetics, and pain medications. At present I don't believe an NG tube is needed. Monitor Accu-Cheks, corrective scale insulin is available if needed. Pradaxa on hold. Oral diabetes agents on hold. Continue amiodarone and phenytoin with sips of water. 01/04/17 14:40 Pain much improved today after multiple bowel movements yesterday and overnight. Gallstones incidentally identified but do not appear to be acutely symptomatic or require acute intervention. Tolerated clear liquids at breakfast , advance diet as tolerated-anticipate cardiac diet at supper tonight and if tolerates well we'll discharge home this evening. Resume Pradaxa, Cozaar, metformin, and Micronase in conjunction with advancing diet. 01/05/2017 The patient is eating and drinking well. He had several bowel movements since upper GI with small bowel follow-through. He has had some small harder bowel movements today. He has some mild abdominal discomfort but he thinks that's from the severe distention he had previously. Abdomen is no longer distended. Right upper quadrant pain is gone now. On exam he is alert and oriented and in no acute distress. Chest is clear to auscultation. Cardiovascular reveals a regular rate and rhythm. Abdomen is soft and nontender with positive bowel sounds. Extremities are free of edema. Discussed with Dr. Allred today. With the patient eating and drinking well and is felt that he can be discharged to home. He does have some gallstones and it's difficult to tell if he had a "mild gallstone attack" that then led to his ileus. Dr. Allred at this time does not recommend cholecystectomy due to his increased risk regarding his cardiac issues. Patient is in agreement. At this time, the patient appears to be stable for dismissal to home. He needs to follow-up with his primary care provider at the [facility] next week. The patient will resume his usual home medications. He can add MiraLAX one to 2 times a day as needed for constipation. Greater than 30 minutes of time was spent seeing and evaluating the patient today in determining care plan. Time spent with patient: greater than 35 minutes Discharge Plan - Med Rec/Dispo [facility] Instructions: Ileus (GEN) Additional Instructions: follow up with Hadley Awan at [facility] in one week Prescriptions: New Polyethylene Glycol 3350 [Miralax] 17 gm PO DAILY PRN #1 bottle PRN Reason: Constipation Continue [place]-3/Dha/Epa/Fish Oil [Fish Oil [place]-3 EC 1,200 mg] 1 cap PO NOON Niacin 1,000 mg PO HS Terbinafine Tab [LamISIL] 250 mg PO DAILY Phenytoin Cap [Dilantin] 200 mg PO HS Nitroglycerin [Nitrostat] 0.4 mg PO Q5MIN3 PRN PRN Reason: Chest Pain Evolocumab [Repatha Sureclick] 140 mg SQ Q2WKS Amiodarone [Pacerone] 200 mg PO TID GlyBURIDE [Micronase] 2.5 mg PO HS Dabigatran [Pradaxa] 150 mg PO BID Metformin [Glucophage] 1,000 mg PO BID GlyBURIDE [Micronase] 5 mg PO QAM Ascorbic Acid [Vitamin C] 1,000 mg PO WS Cholecalciferol (Vitamin D3) [Vitamin D3] 5,000 unit PO NOON Phenytoin Cap [Dilantin] 100 mg PO WB Losartan [Cozaar] 50 mg PO DAILY Gemfibrozil [Lopid] 600 mg PO BIDBS Discharge Instructions/Outpatient Orders: Final Provider Discharge Instructions Location: Determined By Patient
== END 2017-01-05 12:40 | disposition home or self-care (01) | DRG 390 ==
LOC: ED 16:24 → MED 16:24
PROVIDERS: ADMIT Internal Medicine; ATTEND Internal Medicine